=== PATIENT | male | born 1950 | race Caucasian/White ===

== ENCOUNTER 2017-05-25 18:51 | Inpatient (IN) | payer SELFPAY ==
[2017-05-25 19:11] VITALS: BMI 25.0
--- NOTE | 2017-05-25 20:07 | C.PDOC ---
History Of Present Illness Patient presents to the ED with complaints of urinary retention and hematuria for two days. Patient notes a history of BPH and states he experienced a similar episode two weeks ago and was seen by Dr. Denis. Patient began plavix and aspirin but stopped two days ago when had mild hematuria. Patient denies fever, chills, or vomiting. Time Seen by Provider: 05/25/17 20:07 Chief Complaint (Nursing): Male Genitourinary History Per: Patient History/Exam Limitations: no limitations Onset/Duration Of Symptoms: Days (2 days ) Current Symptoms Are (Timing): Still Present Severity: Moderate Pain Scale Rating Of: 4 Associated Symptoms: denies: Fever, Chills, Nausea, Vomiting, Diarrhea Recent travel outside of the [place]: No Past Medical History Reviewed: Historical Data, Nursing Documentation, Vital Signs Vital Signs: Last Vital Signs Temp 97.9 F 05/25/17 19:16 Pulse 88 05/25/17 19:16 Resp 20 05/25/17 19:16 BP 135/79 05/25/17 19:16 Pulse Ox 100 05/25/17 22:46 - Medical History PMH: HTN Family History: States: Unknown Family Hx - Social History Hx Alcohol Use: No Hx Substance Use: No - Immunization History Hx Tetanus Toxoid Vaccination: No Hx Influenza Vaccination: No Hx Pneumococcal Vaccination: No Review Of Systems Constitutional: Negative for: Fever, Chills Cardiovascular: Negative for: Chest Pain, Palpitations Respiratory: Negative for: Cough, Shortness of Breath Gastrointestinal: Negative for: Nausea, Vomiting, Abdominal Pain, Diarrhea Genitourinary: Positive for: Hematuria, Other (urinary retention ) Physical Exam - Physical Exam Appears: Non-toxic, In Acute Distress (patient appears in moderate distress ) Skin: Warm, Dry Oral Mucosa: Moist Neck: Supple Chest: Symmetrical, No Deformity Cardiovascular: Rhythm Regular Respiratory: No Rales, No Rhonchi, No Stridor, No Wheezing Gastrointestinal/Abdominal: Soft, Distention, No Guarding, No Rebound, Other ( Urinary bladder palpated ) Extremity: Normal ROM, No Tenderness, No Calf Tenderness, Capillary Refill ( good capillary refill less than two seconds ), No Swelling Neurological/Psych: Oriented x3 Gait: Steady ED Course And Treatment - Laboratory Results Result Diagrams: 05/25/17 20:32 05/25/17 20:32 ECG: Interpreted By Me, Viewed By Me ECG Rhythm: Sinus Rhythm (80), Nonspecific Changes O2 Sat by Pulse Oximetry: 100 (room air ) Pulse Ox Interpretation: Normal Progress Note: A 20 Danish 3-way catheter, without difficulty, draining bloody urine. Patient notes feeling relief. Reassessment Condition: Improved Disposition Discussed With Dr.: Carlos Price Comment: accepted the pt on his service and took over the care at 9:30 PM Doctor Will See Patient In The: ED Counseled Patient/Family Regarding: Studies Performed, Diagnosis - Disposition Disposition: HOSPITALIZED Disposition Time: 20:07 Condition: FAIR - Clinical Impression Clinical Impression: Acute urinary retention, Hematuria - Scribe Statement The provider has reviewed the documentation as recorded by the Scribe Jossie Jones All medical record entries made by the Scribe were at my direction and personally dictated by me. I have reviewed the chart and agree that the record accurately reflects my personal performance of the history, physical exam, medical decision making, and the department course for this patient. I have also personally directed, reviewed, and agree with the discharge instructions and disposition. Decision To Admit - Pt Status Changed To: Hospital Disposition Of: Inpatient - Admit Certification Admit to Inpatient:: After my assessment, the patient will require hospitalization for at least two midnights. This is because of the severity of symptoms shown, intensity of services needed, and/or the medical risk in this patient being treated as an outpatient. - InPatient: Physician Admission Certification: I certify that this patient requires 2 or more midnights of care for the following reason:: After my assessment, the patient will require hospitalization for at least two midnights. This is because of the severity of symptoms shown, intensity of services needed, and/or the medical risk in this patient being treated as an outpatient. - . Bed Request Type: Regular Admitting Physician: Carlos Price Patient Diagnosis: Acute urinary retention, Hematuria
[2017-05-25] MEDS: Sodium Chloride 0.9% 1,000 ML IV SCH (20:15)
[2017-05-25] MEDS ORDERED: Lidocaine 2% Jelly (Uro-Jet) ONE (20:34)
[2017-05-25 20:42] LABS: BASO # 0.1 K/uL (0.0-0.2); EOS # 0.6 K/uL (0.0-0.7); EOS % 5.7 % (0.0-4.0); HEMOGLOBIN 11.9 g/dL (12.0-18.0); LYMPH # 2.1 K/uL (1.0-4.3); LYMPH % 21.2 % (20.0-40.0); MEAN CELL VOLUME 84.6 fL (80.0-94.0); MEAN CORPUSCULAR HGB CONC 34.2 g/dL (33.0-37.0); MEAN PLATELET VOLUME 7.3 fL (7.2-11.7); MONO # 0.7 K/uL (0.0-0.8); MONO % 7.4 % (0.0-10.0); NEUT # 6.4 K/uL (1.8-7.0); NEUT % 64.7 % (50.0-75.0); RBC 4.12 Mil/uL (4.40-5.90); RED CELL DISTRIBUTION WIDTH 13.9 % (11.5-14.5); WHITE BLOOD COUNT 9.9 K/uL (4.8-10.8)
[2017-05-25 20:50] LABS: INR 1.3; PROTHROMBIN TIME 14.6 SECONDS (9.7-12.2)
[2017-05-25 21:11] LABS: ALBUMIN 4.2 g/dL (3.5-5.0)
[2017-05-25 21:14] LABS: GFR AFRICAN-AMERICAN > 60; GFR NON-AFRICAN AMERICAN > 60
[2017-05-25 21:15] LABS: ALB/GLOB RATIO 1.3 (1.0-2.1); ALT/SGPT 22 U/L (21-72); AST/SGOT 21 U/L (17-59); BLOOD UREA NITROGEN 10 mg/dL (9-20); CALCIUM 9.4 mg/dl (8.6-10.4)
[2017-05-25 23:06] LABS: URINE BACTERIA FEW (<OCC); URINE BILIRUBIN NEGATIVE (NEGATIVE); URINE BLOOD 2+ (NEGATIVE); URINE CLARITY Hazy (Clear); URINE COLOR Red (YELLOW); URINE GLUCOSE (UA) 2+ mg/dL (Normal); URINE LEUKOCYTE ESTERASE 2+ Leu/uL (Negative); URINE NITRATE POSITIVE (NEGATIVE); URINE PROTEIN 2+ mg/dL (NEGATIVE); URINE UROBILINOGEN NORMAL mg/dL (0.2-1.0)
[2017-05-25] MEDS ORDERED: Piperacillin/Tazobact 3.375 gm 100 ML IVPB STA (23:26)
[2017-05-26] MEDS ORDERED: Piperacillin/Tazobact 3.375 gm 100 ML IVPB ONE ×2 (00:22→01:26)
--- NOTE | 2017-05-26 01:14 | CP.PCM.HP ---
<Indira Guo - Last Filed: 05/26/17 06:53> History of Present Illness - History of Present Illness History of Present Illness: CC - "I could not urinate" HPI - 66 year old male with a past medical history of HTN, BPH, DM, NV 2008 presented with urinary retention for one day. He recently had a cysto done with Dr. Mary Winter last week for hematuria at [facility] [place] [facility]. He was taking aspirin and plavix at the time. He was told to stop taking these meds. The hematuria improved so he resumed these meds on Wednesday. ON Wednesday he again noticed hematuria but stated he needed the asa/plavix for his heart. He then saw Dr. Winter yesterday at 2:00 and he sent the patient to the ED. A peterson was placed and sanguinous urine was draining in the peterson bag. Patient only complained of a stuffy nose. He denied fevers/chills, N/vom,, abd pain, diarrhea/constipation, dizziness, SOB, chest pain. The plan is for Dr. Winter to repeat the cyto today. PMHx - HTN, BPH, DM, NV 2008 Meds - flomax, lantus 24 u HS, asa/plavix combo pil from [place], Imdur 30 PO daily Allergies - NKDA Surg - hernia repair 2010, "prostate" surgery 2007, recent cysto Famhx - father had a heart attack at age 57 Social - denied drug, tobacco, or alcohol use. Is visiting his son here from [place], arrived on May 04 PMD - in [place] Present on Admission - Present on Admission Any Indicators Present on Admission: No Review of Systems - Constitutional Constitutional: absent: Chills, Fever - EENT Eyes: absent: Blurred Vision, Change in Vision Nose/Mouth/Throat: Nasal Congestion - Cardiovascular Cardiovascular: absent: Chest Pain, Chest Pain at Rest, Palpitations, Pedal Edema, Syncope - Respiratory Respiratory: absent: Cough, Dyspnea, Dyspnea on Exertion - Gastrointestinal Gastrointestinal: absent: Abdominal Pain, Constipation, Diarrhea, Nausea, Vomiting - Genitourinary Genitourinary: Difficulty Urinating, Hematuria - Musculoskeletal Musculoskeletal: absent: Numbness, Tingling Past Patient History - Past Social History Smoking Status: Never Smoked - CARDIAC Hx Hypertension: Yes - ENDOCRINE/METABOLIC Hx Diabetes Mellitus Type 1: Yes - PSYCHIATRIC Hx Substance Use: No - SURGICAL HISTORY Hx Herniorrhaphy: Yes Other/Comment: prostate surgery. heart stent - ANESTHESIA Hx Anesthesia: Yes Hx Anesthesia Reactions: No Meds Allergies/Adverse Reactions: Allergies Allergy/AdvReac Type Severity Reaction Status Date / Time No Known Allergies Allergy Verified 05/25/17 19:07 Physical Exam - Constitutional Appears: Non-toxic, No Acute Distress - Head Exam Head Exam: ATRAUMATIC, NORMAL INSPECTION - Eye Exam Eye Exam: EOMI, Normal appearance, PERRL Pupil Exam: NORMAL ACCOMODATION - ENT Exam ENT Exam: Mucous Membranes Moist - Respiratory Exam Respiratory Exam: Clear to Auscultation Bilateral, NORMAL BREATHING PATTERN. absent: Accessory Muscle Use, Rales, Wheezes, Respiratory Distress - Cardiovascular Exam Cardiovascular Exam: REGULAR RHYTHM, +S1, +S2 - GI/Abdominal Exam GI & Abdominal Exam: Normal Bowel Sounds, Soft. absent: Distended, Firm, Guarding, Tenderness - Exam Additional comments: Peterson in place - Extremities Exam Extremities exam: Positive for: normal inspection. Negative for: calf tenderness, pedal edema - Back Exam Back exam: NORMAL INSPECTION. absent: CVA tenderness (L), CVA tenderness (R), paraspinal tenderness - Neurological Exam Neurological exam: Alert, Normal Gait, Oriented x3 - Psychiatric Exam Psychiatric exam: Normal Affect, Normal Mood Results - Vital Signs Recent Vital Signs: Last Vital Signs Temp 97.9 F 05/25/17 19:16 Pulse 88 05/25/17 19:16 Resp 20 05/25/17 19:16 BP 135/79 05/25/17 19:16 Pulse Ox 100 05/25/17 23:01 - Labs Result Diagrams: 05/25/17 20:32 05/25/17 20:32 Labs: Laboratory Results - last 24 hr 05/25/17 22:52 Urine Color Red Urine Clarity Hazy Urine pH 6.0 Ur Specific [place] 1.005 Urine Protein 2+ H Urine Glucose (UA) 2+ H Urine Ketones Negative Urine Blood 2+ H Urine Nitrate Positive H Urine Bilirubin Negative Urine Urobilinogen Normal Ur Leukocyte Esterase 2+ H Urine WBC (Auto) 129 H Urine RBC (Auto) 112 H Urine Bacteria Few H Assessment & Plan - Assessment and Plan (Free Text) Assessment: Hematuria Dr. Mary Winter consulted, help appreciated - NPO for cyto tomorrow Peterson in place draining sanguinous urine Hgb 11.9 UA 2+ protein, @+ blood, +nitrate 2+ leuk esterase f/u urine culture Patient last took ASA/Plavix yesterday - will hold f/u am labs f/u chest X ray , EKG INR 1.3 f/u am labs Rocephin 1gm IVPB daily BUN/CR - 10/0.9 BPH Flomax 0,4 mg PO daily Proscar 5mg PO daily DM Accuchecks f/u HbA1c ISS home home dose Lantus 24 U HS due to NPO consider statin/lisinopril on dc HTN controlled Imdur 30mg PO daily - home med Hx NV in 2008 in [place] was taking ASA/Plavix - will hold due to active bleed Nasal congestion saline spray Prophylactic measures SCDS no chemical anticoagulation due to active bleed NPO for or tomorrow <Carlos Price P - Last Filed: 05/29/17 23:01> Results - Vital Signs Recent Vital Signs: Last Vital Signs Temp 98.5 F 05/27/17 08:28 Pulse 65 05/27/17 08:28 Resp 20 05/27/17 08:28 BP 116/82 05/27/17 08:28 Pulse Ox 97 05/27/17 08:28 - Labs Result Diagrams: 05/27/17 06:35 05/27/17 06:35 Attending/Attestation - Attestation I have personally seen and examined this patient.: Yes I have fully participated in the care of the patient.: Yes I have reviewed all pertinent clinical information: Yes
[2017-05-26] MEDS: Sodium Chloride Nasal 0.65% Soln (30ml) NAS SCH ×3 (03:08→22:02)
[2017-05-26] MEDS: Sodium Chloride 0.9% 1,000 ML IV SCH ×2 (06:15→08:45)
[2017-05-26] MEDS ORDERED: cefTRIAXone IV 1 gm in Dextros 50 ML IVPB ONE ×2 (06:20→09:36)
[2017-05-26] MEDS ORDERED: Propofol 10 mg/ml Inj (20 ML) ONE (09:05)
[2017-05-26] MEDS ORDERED: Midazolam 2 MG/2 ML VIAL ONE (09:06)
[2017-05-26] MEDS ORDERED: Lactated Ringer's 1,000 ML IV ONE (09:40)
[2017-05-26] MEDS ORDERED: HYDROmorphone 0.5 mg/0.5 ml ISec IVP PRN (10:32)
--- NOTE | 2017-05-26 10:38 | CP.PCM.CON ---
Past Patient History - Past Social History Smoking Status: Never Smoked - CARDIAC Hx Hypertension: Yes - ENDOCRINE/METABOLIC Hx Diabetes Mellitus Type 1: Yes - PSYCHIATRIC Hx Substance Use: No - SURGICAL HISTORY Hx Herniorrhaphy: Yes Other/Comment: prostate surgery. heart stent - ANESTHESIA Hx Anesthesia: Yes Hx Anesthesia Reactions: No Meds Home Medications: Home Medication List Medication Instructions Recorded Confirmed Type Ciprofloxacin HCl [Cipro] 500 mg PO Q12H #10 tablet 05/27/17 Rx Finasteride [Proscar] 5 mg PO DAILY #30 05/27/17 Rx Insulin Glargine,Hum.rec.anlog 24 unit SQ HS #1 insuln.pen 05/27/17 Rx [Lantus Solostar] Isosorbide Mononitrate [Imdur] 30 mg PO DAILY #30 05/27/17 Rx Tamsulosin [Flomax] 0.4 mg PO DAILY #30 05/27/17 Rx Allergies/Adverse Reactions: Allergies Allergy/AdvReac Type Severity Reaction Status Date / Time No Known Allergies Allergy Verified 05/25/17 19:07 - Medications Medications: Current Medications Famotidine (Pepcid) 20 mg PO BID KEVIN Finasteride (Proscar) 5 mg PO DAILY [facility] Hydromorphone HCl (Dilaudid) 0.5 mg IVP Q5M PRN PRN Reason: Pain, moderate (4-7) Stop: 05/26/17 12:32 Sodium Chloride (Sodium Chloride 0.9%) 1,000 mls @ 100 mls/hr IV .Q10H [facility] Last Admin: 05/26/17 08:45 Dose: 100 mls/hr Ceftriaxone Sodium 1 gm/ (Sodium Chloride) 100 mls @ 100 mls/hr IVPB DAILY [facility] Last Admin: 05/26/17 01:00 Dose: 100 mls/hr Isosorbide Mononitrate (Imdur) 30 mg PO DAILY [facility] Metoclopramide HCl (Reglan) 10 mg IVP ONCE PRN PRN Reason: Nausea/Vomiting Stop: 05/26/17 12:32 Ondansetron HCl (Zofran Inj) 4 mg IVP ONCE PRN PRN Reason: Nausea/Vomiting Stop: 05/26/17 12:32 Saccharomyces Boulardii (Florastor) 250 mg PO BID KEVIN Sodium Chloride ([place] Baby Saline 30 Ml) 1 ml LACEY Q12 [facility] Last Admin: 05/26/17 03:08 Dose: 1 ml Tamsulosin HCl (Flomax) 0.4 mg PO DAILY [facility] Results - Vital Signs Recent Vital Signs: Last Vital Signs Temp 97.3 F L 05/26/17 07:41 Pulse 76 05/26/17 07:41 Resp 20 05/26/17 07:41 BP 141/77 05/26/17 07:41 Pulse Ox 100 05/26/17 07:41 - Labs Result Diagrams: 05/27/17 06:35 05/27/17 06:35 Labs: Laboratory Results - last 24 hr 05/25/17 22:52 Urine Color Red Urine Clarity Hazy Urine pH 6.0 Ur Specific [place] 1.005 Urine Protein 2+ H Urine Glucose (UA) 2+ H Urine Ketones Negative Urine Blood 2+ H Urine Nitrate Positive H Urine Bilirubin Negative Urine Urobilinogen Normal Ur Leukocyte Esterase 2+ H Urine WBC (Auto) 129 H Urine RBC (Auto) 112 H Urine Bacteria Few H Assessment & Plan - Assessment and Plan (Free Text) Assessment: IMP: HEMATURIA URINARY RETENTION CAD BPH DISCUSSED WITH FAMILY AND WITH PT AND WITH HOPSPITAL STAFF PLEASE SEE DICTATED REPORT THANK YOU. YS - Date & Time Date: 05/26/17 Time: 09:25
--- NOTE | 2017-05-26 10:41 | PCM.SURG1 ---
Surgeon's Initial Post Op Note - Surgeon's Notes Surgeon: jovanni kay Drywall Application Supervisor: none Type of Anesthesia: General LMA Pre-Operative Diagnosis: hematuria. urinary retention Operative Findings: same. clot retention. bleeding of prostatic origin Post-Operative Diagnosis: same Operation Performed: cysto, evacuation of clots. fulguration of prostatic bleeding Specimen/Specimens Removed: clots from bladder Estimated Blood Loss: EBL {In ML}: 50 Blood Products Given: N/A Post-Op Condition: Good Date of Surgery/Procedure: 05/26/17 Time of Surgery/Procedure: 10:41
--- NOTE | 2017-05-26 10:46 | RAD ---
HISTORY: pre op COMPARISON: No prior. FINDINGS: LUNGS: The lungs are well inflated and clear. PLEURA: No significant pleural effusion identified, no pneumothorax apparent. CARDIOVASCULAR: Normal. OSSEOUS STRUCTURES: No significant abnormalities. VISUALIZED UPPER ABDOMEN: Normal. OTHER FINDINGS: None. IMPRESSION: No active pulmonary disease.
--- NOTE | 2017-05-26 11:49 | CARD ---
APPROVED REPORT EKG Measurement Heart [id number] <Conclusion> Normal sinus rhythm Normal ECG
[2017-05-26] MEDS ORDERED: Sodium Chloride 0.9% 1,000 ML IV ONE (12:00)
[2017-05-26] MEDS: Saccharomyces Boulardi 250 mg Cap PO SCH ×2 (14:26→17:27)
[2017-05-26 17:05] VITALS: RESP 20
--- NOTE | 2017-05-26 18:29 | CP.PCM.PN ---
<[place]igantownElizabethroselyn E - Last Filed: 05/26/17 20:13> Subjective - Date & Time of Evaluation Date of Evaluation: 05/26/17 Time of Evaluation: 02:00 - Subjective Subjective: Medicine Note (PGY1) : Dr. Kothari's Service Patient s/p cysto day 0 was seen and examined at bedside. Patient reports that he is doing well post-operatively. Patient denies chest pain, sob, nausea, vomiting, fever, chills, abd pain and pain. Patient is tolerating diet. Objective - Vital Signs/Intake and Output Vital Signs (last 24 hours): Temp Pulse Resp BP Pulse Ox 98.1 F 95 H 20 134/99 H 99 05/26/17 15:04 05/26/17 15:04 05/26/17 15:04 05/26/17 15:04 05/26/17 15:04 Intake and Output: 05/26/17 05/26/17 06:59 18:59 Intake Total 1000 Output Total 3000 1250 Balance -3000 -250 - Medications Medications: Current Medications Famotidine (Pepcid) 20 mg PO BID [facility] Last Admin: 05/26/17 17:26 Dose: 20 mg Finasteride (Proscar) 5 mg PO DAILY [facility] Sodium Chloride (Sodium Chloride 0.9%) 1,000 mls @ 100 mls/hr IV .Q10H [facility] Last Admin: 05/26/17 08:45 Dose: 100 mls/hr Ceftriaxone Sodium 1 gm/ (Sodium Chloride) 100 mls @ 100 mls/hr IVPB DAILY [facility] Last Admin: 05/26/17 01:00 Dose: 100 mls/hr Isosorbide Mononitrate (Imdur) 30 mg PO DAILY [facility] Last Admin: 05/26/17 14:26 Dose: Not Given Saccharomyces Boulardii (Florastor) 250 mg PO BID [facility] Last Admin: 05/26/17 17:27 Dose: 250 mg Sodium Chloride ([place] Baby Saline 30 Ml) 1 ml LACEY Q12 [facility] Last Admin: 05/26/17 14:26 Dose: Not Given Tamsulosin HCl (Flomax) 0.4 mg PO DAILY [facility] - Labs Labs: PT 14.6 SECONDS (9.7-12.2) H 05/25/17 20:32 INR 1.3 05/25/17 20:32 APTT 29 SECONDS (21-34) 05/25/17 20:32 - Constitutional Appears: Well, No Acute Distress - Head Exam Head Exam: NORMAL INSPECTION, NORMOCEPHALIC - Eye Exam Eye Exam: EOMI, Normal appearance - ENT Exam ENT Exam: Mucous Membranes Moist, Normal Exam - Respiratory Exam Respiratory Exam: Clear to Ausculation Bilateral, NORMAL BREATHING PATTERN - Cardiovascular Exam Cardiovascular Exam: REGULAR RHYTHM, +S1, +S2 - GI/Abdominal Exam GI & Abdominal Exam: Soft, Normal Bowel Sounds - Extremities Exam Extremities Exam: Normal Capillary Refill, Normal Inspection - Neurological Exam Neurological Exam: Alert, Awake, Oriented x3 - Psychiatric Exam Psychiatric exam: Normal Affect, Normal Mood - Skin Skin Exam: Dry, Normal Color, Warm Assessment and Plan (1) Hematuria Assessment & Plan: Dr. Mary Winter consulted, help appreciated * Recommended a cysto * Cysto performed 05/26/17 - Clots were removed and bladder irrigation is in place * Peterson in place : Monitor peterson for urine output and hematuria UA: * Positive for nitrates * 2+ Leukocytes esterase * 2+ Protein, 2+ Blood * Rocephin sodium 1gm in NACL IVPB daily Status: Acute (2) Acute urinary retention Assessment & Plan: Secondary to BPH Flomax 0,4 mg PO daily Proscar 5mg PO daily Status: Acute (3) Benign prostate hyperplasia Assessment & Plan: Flomax 0,4 mg PO daily Proscar 5mg PO daily Status: Chronic (4) Diabetes Assessment & Plan: Accuchecks f/u HbA1c ISS Lantus 24units SC HS Status: Acute (5) Hypertension Assessment & Plan: Imdur 30mg PO daily Status: Chronic (6) History of coronary artery disease Assessment & Plan: in 2008 in [place] stent placement Plavix and Aspirin 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 [place]---> was held due to hematuria Status: Chronic (7) Prophylactic measure Assessment & Plan: SCDS no chemical anticoagulation due to active bleed Status: Acute <Oralia Kothari V - Last Filed: 05/27/17 09:36> Objective - Vital Signs/Intake and Output Vital Signs (last 24 hours): Temp Pulse Resp BP Pulse Ox 98.5 F 65 20 116/82 97 05/27/17 08:28 05/27/17 08:28 05/27/17 08:28 05/27/17 08:28 05/27/17 08:28 Intake and Output: 05/27/17 05/27/17 06:59 18:59 Intake Total 400 Output Total 2600 Balance -2200 - Medications Medications: Current Medications Famotidine (Pepcid) 20 mg PO BID [facility] Last Admin: 05/26/17 17:26 Dose: 20 mg Finasteride (Proscar) 5 mg PO DAILY [facility] Ceftriaxone Sodium 1 gm/ (Sodium Chloride) 100 mls @ 100 mls/hr IVPB DAILY [facility] Last Admin: 05/26/17 01:00 Dose: 100 mls/hr Insulin Glargine (Lantus) 24 unit SC HS [facility] Last Admin: 05/26/17 22:01 Dose: 24 units Isosorbide Mononitrate (Imdur) 30 mg PO DAILY [facility] Last Admin: 05/26/17 14:26 Dose: Not Given Saccharomyces Boulardii (Florastor) 250 mg PO BID [facility] Last Admin: 05/26/17 17:27 Dose: 250 mg Sodium Chloride ([place] Baby Saline 30 Ml) 1 ml LACEY Q12 [facility] Last Admin: 05/26/17 22:02 Dose: Not Given Tamsulosin HCl (Flomax) 0.4 mg PO DAILY [facility] - Labs Labs: 05/27/17 06:35 05/27/17 06:35 PT 16.1 SECONDS (9.7-12.2) H 05/27/17 06:35 INR 1.4 05/27/17 06:35 APTT 28 SECONDS (21-34) 05/27/17 06:35 Attending/Attestation - Attestation I have personally seen and examined this patient.: Yes I have fully participated in the care of the patient.: Yes I have reviewed all pertinent clinical information, including history, physical exam and plan: Yes Notes (Text): This is late computer entry for 05/26/17. Patient seen, examined and case discussed with day-time resident. Patient seen postoperative urologic intervention on the 3rd floor with son and at bedside. Patient denies acute complaints at this this. CBI is running at bedside. Per discussion with family, patient is off the aspirin and plavix. He is currently visiting this country from [place]. Patient reports he does followup with his brush material preparer in [place] regularly. Per operative note: Patient underwent cystoscopy, evacuation of clots, fulguration of prostatic bleeding. Continue to hold the aspirin and plavix. Patient currently on empiric broad spectrum Abx. Cardiology (Dr. santizo) summons server consulted given patient's significant cardiac history including CAD + stent, DM, HTN and patient is currently off Aspirin/Plavix given hematuria Assessment/Plan (1) Hematuria Assessment & Plan: * Dr. Mary Winter (urology) consulted, help appreciated * Per operative note: Patient underwent cystoscopy, evacuation of clots, fulguration of prostatic bleeding. POD 0 * CBI running at bedside * Peterson in place : Monitor peterson for urine output and hematuria * Rocephin sodium 1gm IVPB daily (active since 05/26/17) Status: Acute (2) Acute urinary retention Assessment & Plan: * Dr. Mary Winter (urology) consulted, help appreciated * Secondary to BPH * Flomax 0,4 mg PO daily * Proscar 5mg PO daily * Peterson in place Status: Acute (3) Benign prostate hyperplasia Assessment & Plan: * Dr. Mary Winter (urology) consulted, help appreciated * Per operative note: Patient underwent cystoscopy, evacuation of clots, fulguration of prostatic bleeding. POD 0 * Flomax 0,4 mg PO daily * Proscar 5mg PO daily Status: Chronic (4) Diabetes Assessment & Plan: * Accuchecks QAC and HS * f/u HbA1c * Lantus 24units SC HS * Patient's diabetic diet resumed post procedure; will consider sliding scale when patient continues to eat Status: Chronic (5) Hypertension Assessment & Plan: * Imdur 30mg PO daily * Monitor vital signs and adjust if necessary Status: Chronic (6) History of coronary artery disease Assessment & Plan: * in 2008 in [place]; stent placement * Was previously on Plavix and Aspirin; were held due to recurrent hematuria * Dr. Santizo (cardiology) consulted, help appreciated * Echocardiogram ordered * Cardiac risk factors: DM, HTN Status: Chronic (7) Prophylactic measure Assessment & Plan: * SCDS * no chemical anticoagulation due to active bleed * Pepcid 20mg PO bid Status: Acute
[2017-05-26] MEDS ORDERED: (Lantus) Insulin Glargine, Recombinant SC SCH (22:00)
[2017-05-27 01:58] VITALS: TEMP 98.5
[2017-05-27 07:02] LABS: INR 1.4; PROTHROMBIN TIME 16.1 SECONDS (9.7-12.2)
[2017-05-27 07:06] LABS: BASO # 0.1 K/uL (0.0-0.2); BASO % 0.8 % (0.0-2.0); EOS # 0.8 K/uL (0.0-0.7); EOS % 9.2 % (0.0-4.0); LYMPH # 1.4 K/uL (1.0-4.3); LYMPH % 16.5 % (20.0-40.0); MEAN CELL VOLUME 83.4 fL (80.0-94.0); MEAN CORPUSCULAR HEMOGLOBIN 29.9 pg (27.0-31.0); MEAN CORPUSCULAR HGB CONC 35.9 g/dL (33.0-37.0); MEAN PLATELET VOLUME 7.2 fL (7.2-11.7); MONO # 0.7 K/uL (0.0-0.8); MONO % 8.1 % (0.0-10.0); NEUT # 5.4 K/uL (1.8-7.0); NEUT % 65.4 % (50.0-75.0); RBC 3.66 Mil/uL (4.40-5.90); RED CELL DISTRIBUTION WIDTH 13.9 % (11.5-14.5); WHITE BLOOD COUNT 8.2 K/uL (4.8-10.8)
[2017-05-27 07:18] LABS: ALBUMIN 3.4 g/dL (3.5-5.0)
[2017-05-27 07:20] LABS: GFR AFRICAN-AMERICAN > 60; GFR NON-AFRICAN AMERICAN > 60
[2017-05-27 07:21] LABS: ALB/GLOB RATIO 1.1 (1.0-2.1); ALT/SGPT 22 U/L (21-72); AST/SGOT 16 U/L (17-59); BLOOD UREA NITROGEN 7 mg/dL (9-20)
[2017-05-27 07:22] LABS: MAGNESIUM 1.7 mg/dL (1.6-2.3)
[2017-05-27 08:29] VITALS: BP 116/82; PULSE 65; O2SAT 97
[2017-05-27] MEDS: Sodium Chloride Nasal 0.65% Soln (30ml) NAS SCH (10:30)
[2017-05-27] MEDS: Saccharomyces Boulardi 250 mg Cap PO SCH ×2 (11:03→17:37)
--- NOTE | 2017-05-27 11:05 | CP.PCM.CON ---
<Iban Cardozo - Last Filed: 05/27/17 10:40> History of Present Illness - History of Present Illness History of Present Illness: Consult Note for Dr. Santizo Reason for Consult: Hx of IA, stent 8 years ago 66 y/o M with PMH of HTN, BPH, DM, and previous IA initially presented on for urinary retention. During the previous week, pt went to [facility] for hematuria. During that time, patient was on aspirin and plavix for hx of IA with stent placement. Pt was told to stop taking these meds for a short period of time, before resuming. Pt states his hematuria improved and he began taking a combination pill of ASA and plavix that he had from [place]. Pt states he went to Dr. Winter's office because of urinary retention and was sent to the ED. Pt had peterson placed which drained serosanguinous urine. The next day patient was taken to the OR for cystoscopy. Pt doing well this morning with no complaints at this time. Peterson draining yellow urine. Denies CP, SOB, N/V/D, fevers, chills , numbness, tingling, hematuria. PMH: HTN, BPH, DM, [place] 2008 Surgical Hx: Hernia repair, Prostate surgery, Cystoscopy FMH: IA Social: Denied alcohol, tobacco, or drug use Medications: See MAR Allergies: NKDA Review of Systems - Constitutional Constitutional: absent: Fatigue, Fever - EENT Eyes: absent: Blurred Vision, Change in Vision - Cardiovascular Cardiovascular: absent: Chest Pain, Irregular Heart Rhythm - Respiratory Respiratory: absent: Cough, Dyspnea - Gastrointestinal Gastrointestinal: absent: Abdominal Pain, Diarrhea, Vomiting - Genitourinary Genitourinary: Hematuria. absent: Dysuria - Integumentary Integumentary: absent: New Lesions, Rash - Neurological Neurological: absent: Numbness, Syncope, Tingling Past Patient History - Past Medical History & Family History Past Medical History?: Yes - Past Social History Smoking Status: Never Smoked - CARDIAC Hx Hypertension: Yes - ENDOCRINE/METABOLIC Hx Diabetes Mellitus Type 1: Yes - MUSCULOSKELETAL/RHEUMATOLOGICAL Hx Falls: No - PSYCHIATRIC Hx Substance Use: No - SURGICAL HISTORY Hx Herniorrhaphy: Yes Other/Comment: prostate surgery. heart stent - ANESTHESIA Hx Anesthesia: Yes Hx Anesthesia Reactions: No Meds Home Medications: Home Medication List Medication Instructions Recorded Confirmed Type Ciprofloxacin HCl [Cipro] 500 mg PO Q12H #10 tablet 05/27/17 Rx Finasteride [Proscar] 5 mg PO DAILY #30 05/27/17 Rx Insulin Glargine,Hum.rec.anlog 24 unit SQ HS #1 insuln.pen 05/27/17 Rx [Lantus Solostar] Isosorbide Mononitrate [Imdur] 30 mg PO DAILY #30 05/27/17 Rx Tamsulosin [Flomax] 0.4 mg PO DAILY #30 05/27/17 Rx Allergies/Adverse Reactions: Allergies Allergy/AdvReac Type Severity Reaction Status Date / Time No Known Allergies Allergy Verified 05/25/17 19:07 - Medications Medications: Current Medications Famotidine (Pepcid) 20 mg PO BID [facility] Last Admin: 05/26/17 17:26 Dose: 20 mg Finasteride (Proscar) 5 mg PO DAILY [facility] Ceftriaxone Sodium 1 gm/ (Sodium Chloride) 100 mls @ 100 mls/hr IVPB DAILY [facility] Last Admin: 05/26/17 01:00 Dose: 100 mls/hr Insulin Glargine (Lantus) 24 unit SC HS [facility] Last Admin: 05/26/17 22:01 Dose: 24 units Isosorbide Mononitrate (Imdur) 30 mg PO DAILY [facility] Last Admin: 05/26/17 14:26 Dose: Not Given Saccharomyces Boulardii (Florastor) 250 mg PO BID [facility] Last Admin: 05/26/17 17:27 Dose: 250 mg Sodium Chloride ([place] Baby Saline 30 Ml) 1 ml LACEY Q12 [facility] Last Admin: 05/26/17 22:02 Dose: Not Given Tamsulosin HCl (Flomax) 0.4 mg PO DAILY [facility] Physical Exam - Constitutional Appears: Well, No Acute Distress - Head Exam Head Exam: ATRAUMATIC, NORMAL INSPECTION, NORMOCEPHALIC - ENT Exam ENT Exam: Mucous Membranes Moist - Respiratory Exam Respiratory Exam: Clear to Auscultation Bilateral, NORMAL BREATHING PATTERN - Cardiovascular Exam Cardiovascular Exam: RRR, +S1, +S2 - GI/Abdominal Exam GI & Abdominal Exam: Normal Bowel Sounds, Soft. absent: Tenderness - Exam Additional comments: Peterson in place - Extremities Exam Extremities exam: Negative for: calf tenderness, pedal edema - Neurological Exam Neurological exam: Alert, Oriented x3 - Skin Skin Exam: Intact, Normal Color, Warm Results - Vital Signs Recent Vital Signs: Last Vital Signs Temp 98.5 F 05/27/17 08:28 Pulse 65 05/27/17 08:28 Resp 20 05/27/17 08:28 BP 116/82 05/27/17 08:28 Pulse Ox 97 05/27/17 08:28 - Labs Result Diagrams: 05/27/17 06:35 05/27/17 06:35 Labs: Laboratory Results - last 24 hr 05/26/17 05/26/17 05/26/17 11:42 16:43 21:37 WBC RBC Hgb Hct MCV MCH MCHC RDW Plt Count MPV Neut % (Auto) Lymph % (Auto) [place] % (Auto) Eos % (Auto) Baso % (Auto) Neut # Lymph # [place] # Eos # Baso # PT INR APTT Sodium Potassium Chloride Carbon Dioxide Anion Gap BUN Creatinine Est GFR ( Amer) Est GFR (Non-Af Amer) POC Glucose (mg/dL) 216 H 229 H 332 H Random Glucose Calcium Phosphorus Magnesium Total Bilirubin AST ALT Alkaline Phosphatase Total Protein Albumin Globulin Albumin/Globulin Ratio 05/27/17 05/27/17 05/27/17 02:20 06:35 06:35 WBC 8.2 RBC 3.66 L Hgb 11.0 L Hct 30.5 L MCV 83.4 MCH 29.9 MCHC 35.9 RDW 13.9 Plt Count 274 MPV 7.2 Neut % (Auto) 65.4 Lymph % (Auto) 16.5 L [place] % (Auto) 8.1 Eos % (Auto) 9.2 H Baso % (Auto) 0.8 Neut # 5.4 Lymph # 1.4 [place] # 0.7 Eos # 0.8 H Baso # 0.1 PT 16.1 H INR 1.4 APTT 28 Sodium Potassium Chloride Carbon Dioxide Anion Gap BUN Creatinine Est GFR ( Amer) Est GFR (Non-Af Amer) POC Glucose (mg/dL) 205 H Random Glucose Calcium Phosphorus Magnesium Total Bilirubin AST ALT Alkaline Phosphatase Total Protein Albumin Globulin Albumin/Globulin Ratio 05/27/17 05/27/17 06:35 07:36 WBC RBC Hgb Hct MCV MCH MCHC RDW Plt Count MPV Neut % (Auto) Lymph % (Auto) [place] % (Auto) Eos % (Auto) Baso % (Auto) Neut # Lymph # [place] # Eos # Baso # PT INR APTT Sodium 137 Potassium 3.9 Chloride 101 Carbon Dioxide 27 Anion Gap 13 BUN 7 L Creatinine 1.0 Est GFR ( Amer) > 60 Est GFR (Non-Af Amer) > 60 POC Glucose (mg/dL) 143 H Random Glucose 134 H Calcium 9.0 Phosphorus 3.9 Magnesium 1.7 Total Bilirubin 0.9 AST 16 L D ALT 22 Alkaline Phosphatase 62 Total Protein 6.4 Albumin 3.4 L Globulin 3.0 Albumin/Globulin Ratio 1.1 Assessment & Plan (1) History of coronary artery disease Assessment and Plan: Pt with hx of CAD with stent placement No need for plavix at this time Pt to continue ASA 81 mg 1 week after procedure Continue current medical management Status: Chronic <Kaycee Santizo - Last Filed: 06/04/17 08:59> Results - Vital Signs Recent Vital Signs: Last Vital Signs Temp 98.5 F 05/27/17 08:28 Pulse 65 05/27/17 08:28 Resp 20 05/27/17 08:28 BP 116/82 05/27/17 08:28 Pulse Ox 97 05/27/17 08:28 - Labs Result Diagrams: 05/27/17 06:35 05/27/17 06:35 Attending/Attestation - Attestation I have personally seen and examined this patient.: Yes I have fully participated in the care of the patient.: Yes I have reviewed all pertinent clinical information: Yes Notes (Text): 06/04/17 08:58 Continue 81 ASA after 1 week as maintainance d/w pt watch for repeat hematuria
[2017-05-27] MEDS ORDERED: (Novolin R) Insulin Human Regular 100 units/ml vial SC SCH ×2 (13:08→16:30)
[2017-05-27] MEDS: (Novolin R) Insulin Human Regular 100 units/ml vial SC SCH ×2 (13:29→17:38)
[2017-05-27] MEDS ORDERED: Bisacodyl 5mg EC Tab PO ONE ×2 (16:28→18:00)
--- NOTE | 2017-05-27 19:32 | CP.PCM.DIS ---
<Antonia Hunter E - Last Filed: 05/27/17 19:35> Provider - Provider Date of Admission: 05/25/17 22:27 Attending physician: Oralia Kothari DO Time Spent in preparation of Discharge (in minutes): 45 Diagnosis - Discharge Diagnosis (1) Hematuria Status: Acute (2) Acute urinary retention Status: Acute (3) Benign prostate hyperplasia Status: Chronic (4) Diabetes Status: Chronic (5) Hypertension Status: Chronic (6) History of coronary artery disease Status: Chronic (7) Prophylactic measure Status: Acute Hospital Course - Lab Results Lab Results: Micro Results 05/25/17 23:50 Urine,Catheterized Urine Culture - Final No Growth (<1,000 CFU/ML) Most Recent Lab Values WBC 8.2 K/uL (4.8-10.8) 05/27/17 06:35 RBC 3.66 Mil/uL (4.40-5.90) L 05/27/17 06:35 Hgb 11.0 g/dL (12.0-18.0) L 05/27/17 06:35 Hct 30.5 % (35.0-51.0) L 05/27/17 06:35 MCV 83.4 fL (80.0-94.0) 05/27/17 06:35 MCH 29.9 pg (27.0-31.0) 05/27/17 06:35 MCHC 35.9 g/dL (33.0-37.0) 05/27/17 06:35 RDW 13.9 % (11.5-14.5) 05/27/17 06:35 Plt Count 274 K/uL (130-400) 05/27/17 06:35 MPV 7.2 fL (7.2-11.7) 05/27/17 06:35 Neut % (Auto) 65.4 % (50.0-75.0) 05/27/17 06:35 Lymph % (Auto) 16.5 % (20.0-40.0) L 05/27/17 06:35 [place] % (Auto) 8.1 % (0.0-10.0) 05/27/17 06:35 Eos % (Auto) 9.2 % (0.0-4.0) H 05/27/17 06:35 Baso % (Auto) 0.8 % (0.0-2.0) 05/27/17 06:35 Neut # 5.4 K/uL (1.8-7.0) 05/27/17 06:35 Lymph # 1.4 K/uL (1.0-4.3) 05/27/17 06:35 [place] # 0.7 K/uL (0.0-0.8) 05/27/17 06:35 Eos # 0.8 K/uL (0.0-0.7) H 05/27/17 06:35 Baso # 0.1 K/uL (0.0-0.2) 05/27/17 06:35 PT 16.1 SECONDS (9.7-12.2) H 05/27/17 06:35 INR 1.4 05/27/17 06:35 APTT 28 SECONDS (21-34) 05/27/17 06:35 Sodium 137 mmol/L (132-148) 05/27/17 06:35 Potassium 3.9 mmol/L (3.6-5.2) 05/27/17 06:35 Chloride 101 mmol/L (98-107) 05/27/17 06:35 Carbon Dioxide 27 mmol/L (22-30) 05/27/17 06:35 Anion Gap 13 (10-20) 05/27/17 06:35 BUN 7 mg/dL (9-20) L 05/27/17 06:35 Creatinine 1.0 MG/DL (0.8-1.5) 05/27/17 06:35 Est GFR ( Amer) > 60 05/27/17 06:35 Est GFR (Non-Af Amer) > 60 05/27/17 06:35 POC Glucose (mg/dL) 294 mg/dL (65-110) H 05/27/17 16:50 Random Glucose 134 mg/dL (75-110) H 05/27/17 06:35 Calcium 9.0 mg/dl (8.6-10.4) 05/27/17 06:35 Phosphorus 3.9 mg/dL (2.5-4.5) 05/27/17 06:35 Magnesium 1.7 mg/dL (1.6-2.3) 05/27/17 06:35 Total Bilirubin 0.9 mg/dL (0.2-1.3) 05/27/17 06:35 AST 16 U/L (17-59) L D 05/27/17 06:35 ALT 22 U/L (21-72) 05/27/17 06:35 Alkaline Phosphatase 62 U/L (38-126) 05/27/17 06:35 Total Protein 6.4 g/dL (6.3-8.3) 05/27/17 06:35 Albumin 3.4 g/dL (3.5-5.0) L 05/27/17 06:35 Globulin 3.0 gm/dL (2.2-3.9) 05/27/17 06:35 Albumin/Globulin Ratio 1.1 (1.0-2.1) 05/27/17 06:35 Urine Color Red (YELLOW) 05/25/17 22:52 Urine Clarity Hazy (Clear) 05/25/17 22:52 Urine pH 6.0 (5.0-8.0) 05/25/17 22:52 Ur Specific [place] 1.005 (1.003-1.030) 05/25/17 22:52 Urine Protein 2+ mg/dL (NEGATIVE) H 05/25/17 22:52 Urine Glucose (UA) 2+ mg/dL (Normal) H 05/25/17 22:52 Urine Ketones Negative mg/dL (NEGATIVE) 05/25/17 22:52 Urine Blood 2+ (NEGATIVE) H 05/25/17 22:52 Urine Nitrate Positive (NEGATIVE) H 05/25/17 22:52 Urine Bilirubin Negative (NEGATIVE) 05/25/17 22:52 Urine Urobilinogen Normal mg/dL (0.2-1.0) 05/25/17 22:52 Ur Leukocyte Esterase 2+ Sherrie/uL (Negative) H 05/25/17 22:52 Urine WBC (Auto) 129 /hpf (0-5) H 05/25/17 22:52 Urine RBC (Auto) 112 /hpf (0-3) H 05/25/17 22:52 Urine Bacteria Few (<OCC) H 05/25/17 22:52 - Hospital Course Hospital Course: As per admission: HPI - 66 year old male with a past medical history of HTN, BPH, DM, [place] 2008 presented with urinary retention for one day. He recently had a cysto done with Dr. Mary Winter last week for hematuria at [facility]. He was taking aspirin and plavix at the time. He was told to stop taking these meds. The hematuria improved so he resumed these meds on Wednesday. ON Wednesday he again noticed hematuria but stated he needed the asa/plavix for his heart. He then saw Dr. Winter yesterday at 2:00 and he sent the patient to the ED. A peterson was placed and sanguinous urine was draining in the peterson bag. Patient only complained of a stuffy nose. He denied fevers/chills, N/vom,, abd pain, diarrhea/constipation, dizziness, SOB, chest pain. The plan is for Dr. Winter to repeat the cyto today. Hospital Course: Patient is a 66 year old male with past medical history of HTN, BPH, DM, [place] 2008 presented with urinary retention for one day. Thereafter, a peterson was placed which drained sanguinous urine. Urologist, Dr. Winter was consulted, who recommended cystoscopy for 05/26/17. Patient had a cystoscopy done 05/26/17, with evacuation of clots, fulguration of prostatic bleeding. Patient did well post-operatively with continuous bladder irrigation running at bedside and peterson in place to monitor for urine output and hematuria over the course of the night. Patient had good urine output and no hematuria overnight. Patient was then cleared by Dr. Winter and peterson was removed. Patient was able to void on his own post-removal of the peterson. Patient was then bladder scan which should no sign of urine retention prior to discharge. Discharge Exam - Head Exam Head Exam: ATRAUMATIC, NORMAL INSPECTION, NORMOCEPHALIC - Eye Exam Eye Exam: EOMI, Normal appearance - ENT Exam ENT Exam: Mucous Membranes Moist, Normal Exam - Respiratory Exam Respiratory Exam: Clear to PA & Lateral, NORMAL BREATHING PATTERN - Cardiovascular Exam Cardiovascular Exam: REGULAR RHYTHM, +S1, +S2 - GI/Abdominal Exam GI & Abdominal Exam: Normal Bowel Sounds, Soft - Extremities Exam Extremities exam: normal capillary refill, normal inspection - Neurological Exam Neurological exam: Alert, Oriented x3 - Psychiatric Exam Psychiatric exam: Normal Affect, Normal Mood - Skin Skin Exam: Dry, Normal Color, Warm Discharge Plan - Discharge Medications Prescriptions: Ciprofloxacin HCl [Cipro] 500 mg PO Q12H #10 tablet Finasteride [Proscar] 5 mg PO DAILY #30 Insulin Glargine,Hum.rec.anlog [Lantus Solostar] 24 unit SQ HS #1 insuln.pen Isosorbide Mononitrate [Imdur] 30 mg PO DAILY #30 Tamsulosin [Flomax] 0.4 mg PO DAILY #30 - Follow Up Plan Condition: FAIR Disposition: HOME/ ROUTINE Instructions: Ciprofloxacin (By mouth), Finasteride (By mouth), Isosorbide Mononitrate (By mouth), Tamsulosin (By mouth), Insulin Glargine (By injection), Coronary Artery Disease (DC), Benign Prostatic Hypertrophy (DC), Hypertension ( DC) Additional Instructions: Please discharge patient home, as per Dr. Kothari. Patient is to continue medications as listed in medication reconciliation. Patient will need to take Cipro 500mg PO twice a day for 5 days. Patient is to establish care in the [facility] in the [facility] for followup. Patient will need to followup with Dr. Whitley Winter, urology, in 1 week. Patient will need to followup with Dr. Santizo, cardiology, on Wednesday03/31/17. Patient is to resume aspirin 81mg daily on June 02, 2017. If symptoms worsen, please return to the hospital for further evaluation and treatment. Discharge medications: Lantus 24U SC HS Cipro 500mg PO Q12h for 5 days Proscar 5mg PO Daily Imdur 30mg PO Daily Flomax 0.4mg PO Daily <Oralia Kothari V - Last Filed: 05/28/17 02:13> Provider - Provider Date of Admission: 05/25/17 22:27 Attending physician: Oralia Kothari [facility] Course - Lab Results Lab Results: Micro Results 05/25/17 23:50 Urine,Catheterized Urine Culture - Final No Growth (<1,000 CFU/ML) Most Recent Lab Values WBC 8.2 K/uL (4.8-10.8) 05/27/17 06:35 RBC 3.66 Mil/uL (4.40-5.90) L 05/27/17 06:35 Hgb 11.0 g/dL (12.0-18.0) L 05/27/17 06:35 Hct 30.5 % (35.0-51.0) L 05/27/17 06:35 MCV 83.4 fL (80.0-94.0) 05/27/17 06:35 MCH 29.9 pg (27.0-31.0) 05/27/17 06:35 MCHC 35.9 g/dL (33.0-37.0) 05/27/17 06:35 RDW 13.9 % (11.5-14.5) 05/27/17 06:35 Plt Count 274 K/uL (130-400) 05/27/17 06:35 MPV 7.2 fL (7.2-11.7) 05/27/17 06:35 Neut % (Auto) 65.4 % (50.0-75.0) 05/27/17 06:35 Lymph % (Auto) 16.5 % (20.0-40.0) L 05/27/17 06:35 [place] % (Auto) 8.1 % (0.0-10.0) 05/27/17 06:35 Eos % (Auto) 9.2 % (0.0-4.0) H 05/27/17 06:35 Baso % (Auto) 0.8 % (0.0-2.0) 05/27/17 06:35 Neut # 5.4 K/uL (1.8-7.0) 05/27/17 06:35 Lymph # 1.4 K/uL (1.0-4.3) 05/27/17 06:35 [place] # 0.7 K/uL (0.0-0.8) 05/27/17 06:35 Eos # 0.8 K/uL (0.0-0.7) H 05/27/17 06:35 Baso # 0.1 K/uL (0.0-0.2) 05/27/17 06:35 PT 16.1 SECONDS (9.7-12.2) H 05/27/17 06:35 INR 1.4 05/27/17 06:35 APTT 28 SECONDS (21-34) 05/27/17 06:35 Sodium 137 mmol/L (132-148) 05/27/17 06:35 Potassium 3.9 mmol/L (3.6-5.2) 05/27/17 06:35 Chloride 101 mmol/L (98-107) 05/27/17 06:35 Carbon Dioxide 27 mmol/L (22-30) 05/27/17 06:35 Anion Gap 13 (10-20) 05/27/17 06:35 BUN 7 mg/dL (9-20) L 05/27/17 06:35 Creatinine 1.0 MG/DL (0.8-1.5) 05/27/17 06:35 Est GFR ( Amer) > 60 05/27/17 06:35 Est GFR (Non-Af Amer) > 60 05/27/17 06:35 POC Glucose (mg/dL) 294 mg/dL (65-110) H 05/27/17 16:50 Random Glucose 134 mg/dL (75-110) H 05/27/17 06:35 Calcium 9.0 mg/dl (8.6-10.4) 05/27/17 06:35 Phosphorus 3.9 mg/dL (2.5-4.5) 05/27/17 06:35 Magnesium 1.7 mg/dL (1.6-2.3) 05/27/17 06:35 Total Bilirubin 0.9 mg/dL (0.2-1.3) 05/27/17 06:35 AST 16 U/L (17-59) L D 05/27/17 06:35 ALT 22 U/L (21-72) 05/27/17 06:35 Alkaline Phosphatase 62 U/L (38-126) 05/27/17 06:35 Total Protein 6.4 g/dL (6.3-8.3) 05/27/17 06:35 Albumin 3.4 g/dL (3.5-5.0) L 05/27/17 06:35 Globulin 3.0 gm/dL (2.2-3.9) 05/27/17 06:35 Albumin/Globulin Ratio 1.1 (1.0-2.1) 05/27/17 06:35 Urine Color Red (YELLOW) 05/25/17 22:52 Urine Clarity Hazy (Clear) 05/25/17 22:52 Urine pH 6.0 (5.0-8.0) 05/25/17 22:52 Ur Specific [place] 1.005 (1.003-1.030) 05/25/17 22:52 Urine Protein 2+ mg/dL (NEGATIVE) H 05/25/17 22:52 Urine Glucose (UA) 2+ mg/dL (Normal) H 05/25/17 22:52 Urine Ketones Negative mg/dL (NEGATIVE) 05/25/17 22:52 Urine Blood 2+ (NEGATIVE) H 05/25/17 22:52 Urine Nitrate Positive (NEGATIVE) H 05/25/17 22:52 Urine Bilirubin Negative (NEGATIVE) 05/25/17 22:52 Urine Urobilinogen Normal mg/dL (0.2-1.0) 05/25/17 22:52 Ur Leukocyte Esterase 2+ [place]/uL (Negative) H 05/25/17 22:52 Urine WBC (Auto) 129 /hpf (0-5) H 05/25/17 22:52 Urine RBC (Auto) 112 /hpf (0-3) H 05/25/17 22:52 Urine Bacteria Few (<OCC) H 05/25/17 22:52 Attending/Attestation - Attestation I have personally seen and examined this patient.: Yes I have fully participated in the care of the patient.: Yes I have reviewed all pertinent clinical information, including history, physical exam and plan: Yes Notes (Text): This is late computer entry for 05/27/17. Patient seen, examined and case discussed with day-time resident. Patient seen postoperative day one urologic intervention on the 3rd floor in the afternoon. Patient would like to go home. Peterson was discontinued by urology. Patient completed trial of void of urine post discontinuation of peterson. Bladder scan post void is 0ml. Per urology, patient is stable for discharge, recommended to follow-up with Mary Winter upon discharge, abx to cover for urinary tract infection, and Proscar and Tamulosin. Patient refused echocardiogram today. Per cardiology, patient stable from their standpoint. Recommended Aspirin 81m PO daily starting one week postoperative if urologic permits, follow-up with Dr. Santizo in one week of discharge since patient does not have a ironworker in this country as he is visiting from [place]. Discharge order and discharge instructions discussed with day-time dietary internship. Per urology, patient is stable for discharge. Per cardiology, recommended to start aspirin 81mg po daily one week post- operative barring no further episodes of hematuria and follow-up with ironworker given cardiac history. Recommended for patient to establish care in the [facility] in the [facility] for followup. Patient will need to followup with Dr. Whitley Winter, urology, in 1 week. Patient will need to followup with Dr. Santizo, cardiology, on Wednesday03/31/17. Patient is to resume aspirin 81mg daily on June 02, 2017. If symptoms worsen, please return to the hospital for further evaluation and treatment. Discharge medications: Lantus 24U SC HS (1 vial/no refills) Cipro 500mg PO Q12h for 5 days (10 pills/no refills) Proscar 5mg PO Daily (30 pills/no refills) Imdur 30mg PO Daily (30 pills/no refills) Flomax 0.4mg PO Daily (30 pills/no refills) This is a summary of patient's hospitalization. Please see summary of patient's hospitalization. (1) Hematuria Assessment & Plan: * Dr. Mary Winter (urology) consulted, help appreciated * Per operative note: Patient underwent cystoscopy, evacuation of clots, fulguration of prostatic bleeding. POD 1 * Urine improved in color; discussed with nursing * Peterson discontinued per urology. Patient able to void post discontinuation of peterson * Per urology, patient is stable for discharge. * Rocephin sodium 1gm IVPB daily (active since 05/26/17); urine culture: no growth * Upon discharge, provided script for one month supply of Flomax 0.4mg PO daily , Proscar 5mg PO daily, and five day script for Ciprofloxcin 500mg PO bid for 5 days. Status: Stable (2) Acute urinary retention Assessment & Plan: * Dr. Mary Winter (urology) consulted, help appreciated * Secondary to BPH * Flomax 0,4 mg PO daily * Proscar 5mg PO daily * Peterson in place * Urine improved in color; discussed with nursing * Peterson discontinued per urology. Patient able to void post discontinuation of peterson * Per urology, patient is stable for discharge. * Rocephin sodium 1gm IVPB daily (active since 05/26/17); urine culture: no growth * Upon discharge, provided script for one month supply of Flomax 0.4mg PO daily , Proscar 5mg PO daily, and five day script for Ciprofloxcin 500mg PO bid for 5 days. Status: Resolved (3) Benign prostate hyperplasia Assessment & Plan: * Dr. Mary Winter (urology) consulted, help appreciated * Per operative note: Patient underwent cystoscopy, evacuation of clots, fulguration of prostatic bleeding. POD 1 * Flomax 0.4 mg PO daily * Proscar 5mg PO daily * Urine improved in color; discussed with nursing * Peterson discontinued per urology. Patient able to void post discontinuation of peterson * Per urology, patient is stable for discharge. * Rocephin sodium 1gm IVPB daily (active since 05/26/17); urine culture: no growth * Upon discharge, provided script for one month supply of Flomax 0.4mg PO daily , Proscar 5mg PO daily, and five day script for Ciprofloxcin 500mg PO bid for 5 days. Status: Chronic (4) Diabetes Assessment & Plan: * Accuchecks QAC and HS * f/u HbA1c * Lantus 24units SC HS to resume upon discharge * Patient's diabetic diet resumed post procedure * insulin sliding scale subq Status: Chronic (5) Hypertension Assessment & Plan: * Imdur 30mg PO daily--->provided one month supply upon discharge * Monitor vital signs and adjust if necessary Status: Chronic (6) History of coronary artery disease Assessment & Plan: * in 2008 in [place]; stent placement * Was previously on Plavix and Aspirin; were held due to recurrent hematuria * Dr. Santizo (cardiology) consulted, help appreciated * Echocardiogram ordered-->patient refused * Cardiac risk factors: DM, HTN * Recommended one week postoperative to restart Aspirin if no further episodes of hematuria and follow-up with cardiology Status: Chronic (7) Prophylactic measure Assessment & Plan: * SCDS * no chemical anticoagulation due to active bleed * Pepcid 20mg PO bid * passed trial of void Status: Acute
--- NOTE | 2017-06-12 11:43 | CP.PCM.CON ---
History of Present Illness - History of Present Illness History of Present Illness: Pt is a 66 y/o male who presented at the ER with hematuria and urinary retention. Pt was found to have a residual of over 500cc. Pt had peterson catheter inserted. Was found to have marked hematuria. Pt has had intermittent hematuria for the past several days with clots. Has had progressive difficulty voiding today. Mr. Kong has a Hx of BPH pain, he has Hx of previous transurethral resection of the prostate. Several weeks ago pt was admitted to [facility] with similar episodes of urinary retention and hematuria with clots. Pt underwent cystoscopy , evacuation of clots and fulguration of prostatic bleeding. After the urine, pt had yellow urine. He was doing well, until he restarted his Aspirin and Plavix, and he had intermittent hematuria. He stopped Aspirin and Plavix and hematuria resolved. He restarted the Aspirin and Plavix and hematuria has returned and progressed. There has been no recent fever or rashes. No flank pain. Pt previously voided with huge urinary stream with good control. He now reports that he has poor stream and is able to only urinate a few drops. No flank pain. No Hx of urolithiasis. Pt has Hx of CAD. Has previously had angioplasty with stent insertion. Pt reports that his [employer] feels that he no longer requires his Antiplatelet drugs. Pt has good appetite. He is visiting son from [place]. Pt does not smoke. Review of Systems - Constitutional Constitutional: Other (good appetite). absent: Fever - Genitourinary Genitourinary: Hematuria (with clots), Other (urinary retention ). absent: Flank Pain - Integumentary Integumentary: absent: Rash Past Patient History - Past Medical History & Family History Past Medical History?: Yes - Past Social History Smoking Status: Never Smoked - CARDIAC Hx Cardiac Disorders: Yes (CAD) Hx Hypertension: Yes - RENAL Hx Kidney Stones: Yes - ENDOCRINE/METABOLIC Hx Diabetes Mellitus Type 1: Yes - MUSCULOSKELETAL/RHEUMATOLOGICAL Hx Falls: No - GENITOURINARY/GYNECOLOGICAL Hx Prostate Problems: Yes (BPH) - PSYCHIATRIC Hx Substance Use: No - SURGICAL HISTORY Hx Angioplasty: Yes Hx Cardiac Catheterization: Yes (with stent insertion) Hx Herniorrhaphy: Yes Other/Comment: prostate surgery. heart stent - ANESTHESIA Hx Anesthesia: Yes Hx Anesthesia Reactions: No Meds Home Medications: Home Medication List Medication Instructions Recorded Confirmed Type Ciprofloxacin HCl [Cipro] 500 mg PO Q12H #10 tablet 05/27/17 Rx Finasteride [Proscar] 5 mg PO DAILY #30 05/27/17 Rx Insulin Glargine,Hum.rec.anlog 24 unit SQ HS #1 insuln.pen 05/27/17 Rx [Lantus Solostar] Isosorbide Mononitrate [Imdur] 30 mg PO DAILY #30 05/27/17 Rx Tamsulosin [Flomax] 0.4 mg PO DAILY #30 05/27/17 Rx Allergies/Adverse Reactions: Allergies Allergy/AdvReac Type Severity Reaction Status Date / Time No Known Allergies Allergy Verified 05/25/17 19:07 Physical Exam - Constitutional Appears: Well, Other (well-nourished male, appearance of stated age, awake, and alert) - GI/Abdominal Exam GI & Abdominal Exam: Soft. absent: Distended, Tenderness - Exam Additional comments: The urine demonstrates marked hematuria due to peterson catheter. Genitalia without inflammation. - Neurological Exam Neurological exam: Alert Results - Vital Signs Recent Vital Signs: Last Vital Signs Temp 98.5 F 05/27/17 08:28 Pulse 65 05/27/17 08:28 Resp 20 05/27/17 08:28 BP 116/82 05/27/17 08:28 Pulse Ox 97 05/27/17 08:28 - Labs Result Diagrams: 05/27/17 06:35 05/27/17 06:35 Labs: 05/26/17: Laboratory Data Reviewed: Anemia is noted. Assessment & Plan - Assessment and Plan (Free Text) Assessment: Impression: 1. Hx of BPH 2. Hx of Urinary retention with clot retention. Pt now has recurrent urinary retention with clot retention. Pt is having continued bleeding. Plan: For cystoscopy. Possible evacuation of clots. Possible biopsy, fulguration, or resection. Findings discussed with pt and family as well as PCP. Cysto today. - Date & Time Date: 05/26/17
--- NOTE | 2017-06-15 11:17 | PCM.OP ---
Operative Report - Operative Report Date of Surgery/Procedure: 05/26/17 Time of Surgery/Procedure: 12:00 Surgeon: Dr Whitley Winter M.D. Anesthesia/Sedation: genl Pre-Operative Diagnosis: Hematuria. Urinary retention. Post-Operative Diagnosis: Hematuria. Urinary retention. Clot retention. Bleeding with prostatic origin. Indication for Surgery: hematuria Operative Findings: Patient was placed in a lithotomy position. Genitalia was prepared and draped and sterile. Anesthesia was provided by the anesthesiologist. Perioperative antibiotics administered. A 22-iraqi cystoscope was introduced under direct vision urethra and prostate environment for inspection. Procedure/Operation Description: There was no stricture_. There was evidence of bleeding from the prostate. The prostatic fossa was open. There was limited visibility of the bladder due to large amount of clots. The clots were removed using the clifford syringe. Due to large amount of clots, the clots also required to be removed using the microvasive evacuator. Following a full clot removal there were extensive clots from the bladder. The old clots were able to eventually be removed. The bladder was re-inspected. There was noted to be no bladder tumor. There was no bladder stones. The ureteral orifices was normal and in position and shape. The bladder was inspected with 70 degree lens_ and confirmed the above findings. There was no bladder neck contractures. There was evidence of moderate bleeding from the prostatic urethral surface. The cystoscope had been removed. A 28-iraqi continuous flow resectoscope sheath had been inserted under direct vision. The resectoscope was required to remove the bladder clots using the microvasive evacuator. The fulguration of the bleeding within the prostatic fossa was performed using bugbee electrodes and electrocautery. Hemostasis was complete. The bladder was re-inspected and confirmed the above findings. The resectoscope was removed. Castaneda catheter was inserted. Bladder drainage was clear. Rectal examination was performed. Prostate was supple and smooth, approximately 15g in size without fixation and duration and nodularity. Patient was returned to supine position. Urine remains clear. . Estimated Blood Loss: 100 Complications: Patient tolerated the procedure without any complications Discharge & Condition: satisfactory
== END 2017-05-27 19:10 | disposition home or self-care (01) | DRG 714 ==
LOC: C.ER 18:51 → C.9E 22:27 → C.3T 05-26 06:42
PROVIDERS: ADMIT Internal Medicine; ATTEND Hospitalist
PROC: 0V507ZZ Destruction of Prostate, Via Natural or Artificial Opening (ICD-10-PCS; 2017-05-26)
PROC: 0T5 Urinary System, Destruction (ICD-10-PCS; 2017-05-26)
PROC: 0TCB8ZZ Extirpation of Matter from Bladder, Via Natural or Artificial Opening Endoscopic (ICD-10-PCS; principal; 2017-05-26 09:15)
DX: N40.1 Benign prostatic hyperplasia with lower urinary tract symptoms (principal); N32.89 Other specified disorders of bladder; I10 Essential (primary) hypertension; R33.8 Other retention of urine; R31.9 Hematuria, unspecified; E10.9 Type 1 diabetes mellitus without complications; I25.2 Old myocardial infarction; I25.10 Atherosclerotic heart disease of native coronary artery without angina pectoris